=== PATIENT | female | born 1940 | race Caucasian/White ===

== ENCOUNTER → 2020-06-24 | Outpatient (CLI) | payer OTHER ==
[2020-06-24 15:56] LABS: HEMOGLOBIN 12.1 gm/dl (12.3-15.3); RED BLOOD COUNT 4.1 M/UL (4.00-5.10); WHITE BLOOD COUNT 5.6 K/UL (4.5-11.0)
[2020-06-24 16:15] LABS: BUN/CREATININE RATIO 18 (0-10)
[2020-06-25 08:14] LABS: VITAMIN D, 25-HYDROXY 64.1 ng/mL (30.0-100.0)
== END ==
LOC: LAB 14:50
PROVIDERS: Family Medicine
DX: E78.5 Hyperlipidemia, unspecified (principal); E55.9 Vitamin D deficiency, unspecified
CPT/HCPCS: 36415; 80053; 80061; 84439; 84443; 84481; 85027

== ENCOUNTER 2021-08-18 22:44 | Emergency (ER) | payer OTHER ==
[2021-08-19 02:10] LABS: HEMOGLOBIN 12.3 gm/dl (12.3-15.3); WHITE BLOOD COUNT 11.3 K/UL (4.5-11.0)
[2021-08-19 02:35] LABS: BUN/CREATININE RATIO 14 (0-10)
[2021-08-19] MEDS ORDERED: GLYCERIN1 EACH PR (04:09)
[2021-08-19] MEDS ORDERED: AMOX TR-K CLV1 EAC4 PO (04:09)
== END 2021-08-19 04:20 | disposition home or self-care (01) ==
LOC: ER1 22:44
PROVIDERS: Student in an Organized Health Care Education/Training Program
DX: K59.00 Constipation, unspecified (principal); K57.32 Diverticulitis of large intestine without perforation or abscess without bleeding; I11.9 Hypertensive heart disease without heart failure; Z86.73 Personal history of transient ischemic attack (TIA), and cerebral infarction without residual deficits; Z88.8 Allergy status to other drugs, medicaments and biological substances
CPT/HCPCS: 80053; 83690; 85025; 99284; Q9967